=== PATIENT | female | born 1985 | race Hispanic/Latino ===

== ENCOUNTER 2024-04-12 21:37 | Day surgery (SDC) | payer SELFPAY ==
[2024-04-12 22:25] VITALS: BMI 28.8
[2024-04-12] MEDS ORDERED: hydrALAZINE 20 MG/ML VIAL SLOW IVP PRN (23:11)
[2024-04-12] MEDS: Acetaminophen 500 MG TAB PO SCH (23:38)
[2024-04-12] MEDS: Lactated Ringer's 1,000 ML IV SCH (23:52)
[2024-04-13 00:41] LABS: FFN Internal QC Analyzer PASS (PASS); FFN Internal QC Cassette PASS (PASS); Fetal Fibronectin Negative (Negative)
[2024-04-13 01:01] LABS: Bilirubin Neg (Negative); Blood, Urine Negative (Negative); Glucose, Urine (Dipstick) Normal (Negative); Ketone, Urine Negative (Negative); Leukocyte Negative (Negative); Nitrite Negative (Negative); Protein, Urine (Dipstick) Negative (Neg-Trace); Specific Gravity, Urine 1.015 (1.005-1.030); Urobilinogen Normal mg/dL (Less than 2)
[2024-04-13 01:07] LABS: Clarity Clear (Clear)
[2024-04-13 01:08] LABS: Bacteria/HPF Rare-Few HPF (None Seen); Mucous/LPF Rare LPF (<2+); RBC/HPF 0-3 HPF (0-3); WBC/HPF 0-3 HPF (0-3)
== END 2024-04-13 02:30 | disposition home or self-care (01) ==
LOC: CSHLD/OP 21:37
PROVIDERS: ATTEND Family Medicine
DX: O99.891 Other specified diseases and conditions complicating pregnancy (principal); R10.9 Unspecified abdominal pain; O23.593 Infection of other part of genital tract in pregnancy, third trimester; B96.89 Other specified bacterial agents as the cause of diseases classified elsewhere; O21.2 Late vomiting of pregnancy; O09.523 Supervision of elderly multigravida, third trimester; O09.43 Supervision of pregnancy with grand multiparity, third trimester; Z98.84 Bariatric surgery status; Z3A.29 29 weeks gestation of pregnancy; Z90.49 Acquired absence of other specified parts of digestive tract; Z79.899 Other long term (current) drug therapy
CPT/HCPCS: 81001; 82731; 87480; 87510; 87660; 96360; 96361; 99285

== ENCOUNTER → 2024-05-15 | Day surgery (SDC) | payer MEDICAID | LOC: CSHLD/OP 20:20 | PROVIDERS: ATTEND Family Medicine | DX: O21.2 Late vomiting of pregnancy (principal); O09.43 Supervision of pregnancy with grand multiparity, third trimester; O09.523 Supervision of elderly multigravida, third trimester; Z3A.34 34 weeks gestation of pregnancy; Z90.49 Acquired absence of other specified parts of digestive tract; Z87.59 Personal history of other complications of pregnancy, childbirth and the puerperium | CPT/HCPCS: 87086; 96360; 96361; 99283 ==

== ENCOUNTER 2024-05-17 15:12 | Day surgery (SDC) | payer MEDICAID ==
[2024-05-17 15:27] VITALS: BMI 29.7
[2024-05-17] MEDS ORDERED: hydrALAZINE 20 MG/ML VIAL SLOW IVP PRN (15:47)
[2024-05-17] MEDS ORDERED: Ondansetron PF 4 MG/2 ML Vial IVP SCH (16:00)
[2024-05-17] MEDS: Lactated Ringer's 1,000 ML IV SCH (16:15)
[2024-05-17 16:25] LABS: #Basophils 0.03 10x3/uL (0.0-0.2); #Eosinophils 0.05 10x3/uL (0.0-0.5); #Monocytes 0.57 10x3/uL (0.0-1.1); #Neutrophils 4.84 10x3/uL (1.5-8.4); %Basophils 0.4 % (0.0-2.0); %Eosinophils 0.7 % (0.0-6.0); %Lymphocytes 17.3 % (18.0-47.0); %Monocytes 8.5 % (0.0-10.0); %Neutrophils 72.5 % (40.0-75.0); Hematocrit 29.1 % (34.9-44.5); Hemoglobin 9.1 g/dL (12.0-15.5); Mean Corpuscular HGB CONC 31.3 g/dL (32.0-36.0); Mean Corpuscular Hemoglobin 23.6 pg (27.0-33.0); Mean Corpuscular Volume 75.6 fL (81.6-98.3); Mean Platelet Volume 10.5 fL (7.4-10.4); Platelet Count 302 10x3/uL (150-450); RBC Distribution Width 14.5 % (11.5-14.5); Red Blood Cell (RBC) Count 3.85 10x6/uL (3.90-5.03); White Blood Cell (WBC) Count 6.7 10x3/uL (3.5-10.5)
[2024-05-17] MEDS ORDERED: Promethazine HCl 12.5 MG, Admixture Fee 1 EACH in Sodium Chloride 0.9% 50 ML IVPB SCH (16:30)
[2024-05-17 16:40] LABS: ALT (SGPT) 11 U/L (8-55); AST (SGOT) 13 U/L (5-34); Albumin 2.5 g/dL (3.5-5.0); Alkaline Phosphatase 145 U/L (40-110); Anion Gap 12 mmol/L (10-20); BUN (Urea Nitrogen) 4 mg/dL (7.0-18.7); Bilirubin, Total 0.3 mg/dL (0.2-1.2); Calc. Creatinine Clearance 150 mL/min (70-130); Calcium 8.2 mg/dL (7.8-10.44); Carbon Dioxide 18 mmol/L (22-29); Chloride 110 mmol/L (98-107); Estimated GFR 122; Globulin 3.3 g/dL (2.4-3.5); Glucose 67 mg/dL (70-105); Potassium 4.2 mmol/L (3.5-5.1); Protein, Total 5.8 g/dL (6.0-8.3); Sodium 136 mmol/L (136-145)
[2024-05-17] MEDS: Famotidine/PF 20 mg/2ml Vial SLOW IVP SCH (16:52)
[2024-05-17] MEDS: Promethazine HCl 12.5 MG, Admixture Fee 1 EACH in Sodium Chloride 0.9% 100 ML IVPB SCH (16:55)
== END 2024-05-17 18:55 | disposition home or self-care (01) ==
LOC: CSHLD/OP 15:12
PROVIDERS: ATTEND Family Medicine
DX: O47.03 False labor before 37 completed weeks of gestation, third trimester (principal); O21.2 Late vomiting of pregnancy; O36.8130 Decreased fetal movements, third trimester, not applicable or unspecified; O09.40 Supervision of pregnancy with grand multiparity, unspecified trimester; O47.1 False labor at or after 37 completed weeks of gestation; O09.523 Supervision of elderly multigravida, third trimester; Z98.84 Bariatric surgery status; Z3A.37 37 weeks gestation of pregnancy
CPT/HCPCS: 76819; 80053; 85025; 96360; 99283; J2550; J3490

== ENCOUNTER → 2024-06-15 | Day surgery (SDC) | payer OTHER ==
[2024-06-15 17:02] LABS: Bilirubin Neg (Negative); Blood, Urine Negative (Negative); Clarity Clear (Clear); Glucose, Urine (Dipstick) Normal (Negative); Ketone, Urine 5 mg/dL (Negative); Leukocyte Negative (Negative); Nitrite Negative (Negative); Protein, Urine (Dipstick) 30 mg/dl (Neg-Trace); Specific Gravity, Urine 1.025 (1.005-1.030)
[2024-06-15 17:04] LABS: Bacteria/HPF 1+ HPF (None Seen); Mucous/LPF 3+ LPF (<2+); RBC/HPF 0-3 HPF (0-3); Squamous Epithelial 0-3 HPF (0-3); WBC/HPF 0-3 HPF (0-3)
[2024-06-15 17:07] LABS: Fetal Membranes Rupture No Membranes Rupture (No Rupture)
== END ==
LOC: CSHLD/OP 01:39
PROVIDERS: ATTEND Family Medicine
DX: O47.1 False labor at or after 37 completed weeks of gestation (principal); O09.523 Supervision of elderly multigravida, third trimester; Z98.84 Bariatric surgery status; Z90.49 Acquired absence of other specified parts of digestive tract; Z3A.38 38 weeks gestation of pregnancy
CPT/HCPCS: 81003; 81015; 84112; 87480; 87510; 87660; 96360; 96361; 99285

== ENCOUNTER 2024-06-17 14:49 | Inpatient (IN) | payer MEDICAID, OTHER ==
[2024-06-17 19:34] VITALS: BMI 35.9
[2024-06-17] MEDS: Lactated Ringer's 1,000 ML IV SCH (20:05)
[2024-06-17] MEDS ORDERED: Ibuprofen 800 MG TAB PO PRN (22:24)
[2024-06-17] MEDS ORDERED: Promethazine HCl 25 MG/ML VIAL IM PRN (22:24)
[2024-06-17] MEDS ORDERED: Carboprost 250 MCG/ML AMP IM PRN (22:24)
[2024-06-17] MEDS ORDERED: Tranexamic Acid 1,000 MG/10 ML VIAL IVP PRN (22:24)
[2024-06-17] MEDS ORDERED: Acetaminophen 500 MG TAB PO PRN (22:24)
[2024-06-17] MEDS ORDERED: hydrALAZINE 20 MG/ML VIAL SLOW IVP PRN (22:24)
[2024-06-17] MEDS ORDERED: Lidocaine 1% (PF) 30 ML VIAL SC PRN (22:24)
[2024-06-17] MEDS ORDERED: Diphenoxylate HCl/Atropine Tablet PO PRN (22:24)
[2024-06-17] MEDS ORDERED: HYDROcodone/Acetaminophen 5/325 mg Tablet PO PRN (22:24)
[2024-06-17] MEDS ORDERED: Methylergonovine 0.2 MG/ML VIAL IM PRN (22:24)
[2024-06-17] MEDS ORDERED: Misoprostol 200 MCG TAB PR PRN (22:24)
[2024-06-17] MEDS ORDERED: Ondansetron PF 4 MG/2 ML Vial IVP PRN (22:24)
[2024-06-17] MEDS ORDERED: Oxytocin 30 units/NS 500 ML 500 ML IV SCH ×3 (22:30)
[2024-06-17 23:13] LABS: Hematocrit 29.2 % (34.9-44.5); Hemoglobin 8.8 g/dL (12.0-15.5); Mean Corpuscular HGB CONC 30.1 g/dL (32.0-36.0); Mean Platelet Volume 11.5 fL (7.4-10.4); Platelet Count 272 10x3/uL (150-450); RBC Distribution Width 16.8 % (11.5-14.5); White Blood Cell (WBC) Count 5.7 10x3/uL (3.5-10.5)
[2024-06-17 23:19] LABS: HBsAg Index 0.19 S/CO (0-0.99); Hep B Surf Ag - L&D Non-Reactive S/CO (NonReactive); Syphilis Antibody Nonreactive (Nonreactive); Syphilis Antibody Index 0.03 S/CO (<1.00 Non-Reactive)
[2024-06-18] MEDS: Misoprostol 100 MCG TAB PO SCH (01:51)
[2024-06-18] MEDS: fentaNYL 50 mcg/mL 1 mL Vial SLOW IVP PRN (03:06)
[2024-06-18] MEDS: fentaNYL/Ropivacaine Epidural 100 ML ONE (05:19)
[2024-06-18] MEDS ORDERED: Acetaminophen 325 MG TAB PO PRN (05:23)
[2024-06-18] MEDS ORDERED: diphenhydrAMINE 50 MG/ML VIAL IVP PRN (05:23)
[2024-06-18] MEDS ORDERED: Naloxone HCl 0.4 mg/ml Vial IVP PRN ×4 (05:23→13:38)
[2024-06-18] MEDS ORDERED: Lactated Ringer's 500 ML IV PRN (05:23)
[2024-06-18] MEDS ORDERED: Ondansetron PF 4 MG/2 ML Vial IVP PRN ×3 (05:23→13:38)
[2024-06-18] MEDS ORDERED: Moisturizing Cream (Eucerin) 113 GM JAR TOP PRN ×2 (05:23→13:38)
[2024-06-18] MEDS ORDERED: Promethazine HCl 25 MG/ML VIAL IM PRN ×2 (05:23→13:38)
[2024-06-18] MEDS ORDERED: fentaNYL 2 mcg/Ropivacaine 0.2% Epidural 100 ML CADD EPIDURAL SCH (05:30)
[2024-06-18] MEDS ORDERED: Communication Order-Pharmacy FS SCH ×2 (05:30→13:45)
[2024-06-18] MEDS: ePHEDrine Sulfate 50 MG/10 ML VIAL SLOW IVP PRN (05:47)
[2024-06-18] MEDS ORDERED: fentaNYL 50 mcg/mL 1 mL Vial SLOW IVP PRN (13:38)
[2024-06-18] MEDS ORDERED: Naloxone HCl 0.4 mg/ml Vial IV PRN (13:38)
[2024-06-18] MEDS ORDERED: Ketorolac Tromethamine 30 MG (1 mL) VIAL IVP PRN (13:38)
[2024-06-18] MEDS ORDERED: Meperidine HCl/PF 25 MG (1 mL) VIAL SLOW IVP PRN (13:38)
[2024-06-18] MEDS: Azithromycin 500 MG VIAL ONE (15:18)
[2024-06-18] MEDS: CEFAZOLIN 2 GM VIAL ONE (15:18)
[2024-06-18] MEDS: Oxytocin 10 UNITS/ML VIAL ONE (15:18)
[2024-06-18] MEDS: Ketorolac Tromethamine 30 MG (1 mL) VIAL IVP PRN (15:18)
[2024-06-18] MEDS: Morphine PF 10 MG/10 ML VIAL ONE (15:18)
[2024-06-18] MEDS: PHENYLEPHRINE-NS 100 MCG/ML 10 ML SYRINGE ONE (15:18)
[2024-06-18] MEDS ORDERED: Bisacodyl 10 MG SUPP PR PRN (16:44)
[2024-06-18] MEDS ORDERED: HYDROcodone/Acetaminophen 5/325 mg Tablet PO PRN (16:44)
[2024-06-18] MEDS ORDERED: hydrALAZINE 20 MG/ML VIAL SLOW IVP PRN (16:44)
[2024-06-18] MEDS ORDERED: Lanolin Ointment 7 GM TUBE TOP PRN (16:44)
[2024-06-18] MEDS ORDERED: diphenhydrAMINE 25 MG CAP PO PRN (16:44)
[2024-06-18] MEDS: Ketorolac Tromethamine 30 MG (1 mL) VIAL IVP SCH (21:09)
[2024-06-18] MEDS: Ondansetron PF 4 MG/2 ML Vial IVP PRN (21:12)
[2024-06-18] MEDS: diphenhydrAMINE 50 MG/ML VIAL IVP PRN (22:17)
[2024-06-19] MEDS ORDERED: Meperidine HCl/PF 25 MG (1 mL) VIAL IM PRN (01:45)
[2024-06-19] MEDS: Ferrous Sulfate 325 MG TAB PO SCH (03:06)
[2024-06-19] MEDS: Docusate 100 MG CAP PO SCH (03:06)
[2024-06-19 04:36] LABS: Hematocrit 21.7 % (34.9-44.5); Hemoglobin 6.8 g/dL (12.0-15.5); Mean Corpuscular HGB CONC 31.3 g/dL (32.0-36.0); Mean Corpuscular Hemoglobin 23.1 pg (27.0-33.0); Mean Corpuscular Volume 73.6 fL (81.6-98.3); Mean Platelet Volume 11.2 fL (7.4-10.4); Platelet Count 218 10x3/uL (150-450); RBC Distribution Width 16.9 % (11.5-14.5); Red Blood Cell (RBC) Count 2.95 10x6/uL (3.90-5.03); White Blood Cell (WBC) Count 8.6 10x3/uL (3.5-10.5)
[2024-06-19] MEDS: HYDROcodone/Acetaminophen 5/325 mg Tablet PO PRN ×2 (08:23→13:06)
[2024-06-19] MEDS ORDERED: Boostrix 0.5 ML (Tdap) VIAL (>/=7 yrs of age) IM ONE (09:00)
[2024-06-19] MEDS: Prenatal Vitamin 1 TAB PO SCH (09:43)
[2024-06-19] MEDS: Ibuprofen 800 MG TAB PO SCH (16:35)
[2024-06-19] MEDS: Simethicone Chewable 80 MG TAB PO PRN (17:53)
[2024-06-21 14:57] VITALS: BP 135/66; TEMP 98.1
== END 2024-06-21 18:00 | disposition home or self-care (01) | DRG 788 ==
LOC: CSHLD 18:52 → CSHPP 06-18 16:21
PROVIDERS: ADMIT Family Medicine; ATTEND Family Medicine
PROC: 10D00Z1 Extraction of Products of Conception, Low, Open Approach (ICD-10-PCS; principal; 2024-06-18)
PROC: 10907ZC Drainage of Amniotic Fluid, Therapeutic from Products of Conception, Via Natural or Artificial Opening (ICD-10-PCS; 2024-06-18)
PROC: 3E0S3BZ Introduction of Anesthetic Agent into Epidural Space, Percutaneous Approach (ICD-10-PCS; 2024-06-18)
DX: O76 Abnormality in fetal heart rate and rhythm complicating labor and delivery (principal); Z3A.39 39 weeks gestation of pregnancy; Z37.0 Single live birth
CPT/HCPCS: 36415; 51702; 85027; 86780; 86850; 86900; 86901; 87340; C1889; J1200; J1885; J2274; J2405; J2590; J3010; J7120